=== PATIENT | male | born 1950 | race Caucasian/White ===

== ENCOUNTER 2017-11-05 14:19 | Observation (INO) ==
[2017-11-05] MEDS ORDERED: Ipratropium/Albuterol Neb 3 ML IH ONE ×2 (14:22→16:08)
[2017-11-05] MEDS ORDERED: Isovue-370 500 ML INFUS..BTL IV ONE (14:30)
--- NOTE | 2017-11-05 14:32 | Emergency Department Note ---
Disposition Clinical Impression: Acute respiratory failure, COPD exacerbation Disposition: Admitted As Inpatient Condition: Fair General Adult HPI - General Chief complaint: ED Shortness of Breath/Dyspnea Stated complaint: lydia Time Seen by Provider: 11/05/17 14:21 - Related Data Home Medications Medication Instructions Recorded Confirmed Amoxicillin [Amoxil] 500 mg PO TID 11/05/17 11/05/17 Atorvastatin Calcium [Lipitor] 20 mg PO QPM 11/05/17 11/05/17 C/Sourcherry/Celery/Grape Seed 1 cap PO DAILY 11/05/17 11/05/17 [Tart Mason Capsule] Calcium Carbonate [Calcium] 600 mg PO DAILY 11/05/17 11/05/17 Cetirizine HCl [Zyrtec] 10 mg PO DAILY 11/05/17 11/05/17 Cyanocobalamin (Vitamin B-12) 500 mcg PO DAILY 11/05/17 11/05/17 [Vitamin B-12] Fluticasone Propionate Nasal 1 spr NS DAILY 11/05/17 11/05/17 [Flonase] Lisinopril [Zestril] 20 mg PO DAILY 11/05/17 11/05/17 Multivit-Min/FA/Lycopen/Lutein [A 1 tab PO DAILY 11/05/17 11/05/17 Thru Z Select Men 50+ Tablet] [place]-3/Dha/Epa/Fish Oil [Fish Oil 1 cap PO DAILY 11/05/17 11/05/17 1,000 mg Softgel] Allergies Allergy/AdvReac Type Severity Reaction Status Date / Time No Known Allergies Allergy Verified 11/05/17 14:32 Past Medical History - Past Medical History Medical history: Reports: GERD, hyperlipidemia, hypertension Psychiatric history: Reports: no psych history - Social History Smoking Status: Former smoker Smokeless Tobacco Status: No Alcohol use: Reports: heavy, recent Drug use: Reports: none Course Vital Signs Pulse Rate 106 11/05/17 14:30 Respiratory Rate 28 11/05/17 14:30 Blood Pressure 151/103 11/05/17 14:30 O2 Sat by Pulse Oximetry 100 11/05/17 14:30 Temperature 98.5 F 11/05/17 14:33 Pulse Rate 101 11/05/17 16:30 Respiratory Rate 22 11/05/17 16:43 Blood Pressure 131/77 11/05/17 16:30 O2 Sat by Pulse Oximetry 97 11/05/17 16:43 Oxygen Delivery Oxygen Delivery Nasal Cannula Medical Decision Making - Lab Data Result diagrams: 11/05/17 14:47 11/05/17 14:47 Lab Results 11/05/17 11/05/17 11/05/17 Range/Units 14:47 14:47 14:47 WBC 8.9 (4.3-11.1) K/mcL RBC 4.70 (4.19-5.50) M/mcL Hgb 14.6 (12.9-16.9) g/dL Hct 42.1 (37.5-50.1) % MCV 89.6 (83.0-100.0) fL MCH 31.1 (28.0-33.3) pg MCHC 34.7 (31.6-35.5) g/dL RDW 12.8 (11.5-14.5) % Plt Count 321 (140-400) K/mcL MPV 10.0 (9.4-12.4) fL Immature Gran % 0.2 (0-4) % Seg Neutrophils % 70.6 % Lymphocytes % 14.0 % Monocytes % 7.2 % Eosinophils % 7.6 % Basophils % 0.4 % Neutrophils # 6.3 (1.6-8.9) K/mcL Lymphocytes # 1.3 (0.6-4.6) K/mcL Monocytes # 0.6 (0.0-1.3) K/mcL Eosinophils # 0.7 H (0.0-0.6) K/mcL Basophils # 0.0 (0.0-0.2) K/mcL Sodium 140 (136-145) mEq/L Potassium 4.0 (3.5-5.1) mEq/L Chloride 104 (98-107) mEq/L Carbon Dioxide 26 (23-29) mEq/L BUN 10 (8-23) mg/dL Creatinine 0.86 (0.70-1.30) mg/dL Est GFR ( Amer) > 60 (> 60) Est GFR (Non-Af Amer) > 60 (> 60) BUN/Creatinine Ratio 12 (6-26) Glucose 117 H (70-105) mg/dL Calculated Osmolality 290 (280-300) Lactic Acid (0.5-2.2) mmol/L Calcium 9.1 (8.6-10.3) mg/dL Troponin I < 0.03 (< 0.04) ng/mL B-Natriuretic Peptide 17 (Less than 100) pg/mL 11/05/17 Range/Units 14:47 WBC (4.3-11.1) K/mcL RBC (4.19-5.50) M/mcL Hgb (12.9-16.9) g/dL Hct (37.5-50.1) % MCV (83.0-100.0) fL MCH (28.0-33.3) pg MCHC (31.6-35.5) g/dL RDW (11.5-14.5) % Plt Count (140-400) K/mcL MPV (9.4-12.4) fL Immature Gran % (0-4) % Seg Neutrophils % % Lymphocytes % % Monocytes % % Eosinophils % % Basophils % % Neutrophils # (1.6-8.9) K/mcL Lymphocytes # (0.6-4.6) K/mcL Monocytes # (0.0-1.3) K/mcL Eosinophils # (0.0-0.6) K/mcL Basophils # (0.0-0.2) K/mcL Sodium (136-145) mEq/L Potassium (3.5-5.1) mEq/L Chloride (98-107) mEq/L Carbon Dioxide (23-29) mEq/L BUN (8-23) mg/dL Creatinine (0.70-1.30) mg/dL Est GFR ( Amer) (> 60) Est GFR (Non-Af Amer) (> 60) BUN/Creatinine Ratio (6-26) Glucose (70-105) mg/dL Calculated Osmolality (280-300) Lactic Acid 1.0 (0.5-2.2) mmol/L Calcium (8.6-10.3) mg/dL Troponin I (< 0.04) ng/mL B-Natriuretic Peptide (Less than 100) pg/mL Critical Care Time Critical Care Time: Yes Total Critical Care Time: 35 Attestation: Critical care performed: Time is exclusive of separately billable procedures. Time includes: direct patient care, patient reassessment, coordination of patient care, interpretation of data (laboratory data, radiology data, and respiratory data), review of patient's medical records, medical consultation and documentation of patient care. Procedures included in critical care time: Procedures excluded from critical care time: Attestation Statement - Attestation Attestation: I examined this patient and my medical decision-making was reviewed with the Resident Physician. I agree with the documented findings, disposition and treatment plan as described except to the extent set forth below. Patient presents to the ED with difficulty in breathing. Started last night. Coughing. Cannot lay flat. Was seen in urgent care this morning and prescribed Claritin and amoxicillin. On examination he is tachypneic with accessory muscle use. Wheezes and rhonchi in his lower lung jain bilaterally. Plan. Nebs chest x-ray cardiac workup. Workup does not show any acute process. Labs unremarkable. No obvious infiltrate on CT. We will treat as an acute bronchitis/COPD exacerbation. Steroids and nebs were given. Patient is improved at this time. No longer tachypneic. No longer requiring BiPAP. Admitted to medicine.
--- NOTE | 2017-11-05 14:57 | Emergency Department Note ---
Disposition Clinical Impression: COPD exacerbation Acute respiratory failure Qualifiers: Respiratory failure complication: unspecified whether with hypoxia or hypercapnia Qualified Code(s): J96.00 - Acute respiratory failure, unspecified whether with hypoxia or hypercapnia Disposition: Admitted As Inpatient Condition: Fair Referrals: Brando West MD [Primary Care Provider] - Forms: ED Satisfaction Letter SOB HPI - General Chief Complaint: ED Shortness of Breath/Dyspnea Stated Complaint: lydia Time Seen by Provider: 11/05/17 14:21 Source: patient, family, EMS Mode of arrival: EMS Limitations: no limitations Nursing Notes Reviewed: Yes Vital Signs Reviewed: Yes - History of Present Illness 67-year-old male history of hypertension, hyperlipidemia, prior smoking history who presents to the ER via EMS due to shortness of breath. Reports he has felt weak for a couple of weeks however last night he started developing a productive cough as well as shortness of breath. States that he woke up today and went to urgent care where they diagnosed him with allergies, started Claritin and amoxicillin and sent him home. States he got a breathing treatment there that did seem to help him briefly. He denies a prior history of COPD. No oxygen dependent history previously. Denies any fevers, chest pain , nausea, vomiting, diarrhea. No hemoptysis, recent travel, surgeries or cancer. No other complaints. Pt Subjective Complaint: shortness of breath, cough Onset (ago): day(s) Context: recent illness Severity: severe Consistency/Duration: constant Improves with: nothing Worsens with: lying flat Associated symptoms: Reports: cough, sputum production, orthopnea. Denies: chest pain, fever Treatment prior to arrival: none Cough present: Yes Cough Description: Involuntary Cough Frequency: Intermittent Sputum production: Yes - Related Data Home oxygen amount: none Allergies Allergy/AdvReac Type Severity Reaction Status Date / Time No Known Allergies Allergy Verified 11/05/17 14:32 All systems ED: reviewed and negative except as stated. Constitutional: Denies: fever Cardiovascular: Denies: chest pain Respiratory: Reports: cough, dyspnea, sputum production Gastrointestinal: Denies: abdominal pain, nausea, vomiting Past Medical History - Past Medical History Attestation: Yes The following information was validated with the patient. Source: patient Medical history: Reports: COPD, GERD, hyperlipidemia, hypertension Psychiatric history: Reports: no psych history - Social History Smoking Status: Former smoker Smokeless Tobacco Status: No Alcohol use: Reports: heavy, recent Drug use: Reports: none Physical Exam - General Limitations: no limitations General appearance: alert, in no apparent distress - Head Head exam: atraumatic, normocephalic - Eye Eye exam: Present: normal appearance - ENT ENT exam: normal exam - Neck Neck exam: Present: normal inspection - Chest Chest inspection: Present: normal inspection, symmetric chest wall rise - Respiratory Respiratory exam: Present: respiratory distress, other (There are coarse rhonchorous breath sounds bilaterally.) - Cardiovascular Cardiovascular exam: Present: normal rhythm, tachycardia, normal heart sounds - Abdominal Exam Abdominal exam: Present: soft, Non-Tender. Absent: tenderness, distention, rigidity - Extremities Exam Extremities exam: Present: normal inspection, full ROM - Expanded Upper Extremity Exam Shoulder exam: Present: normal inspection, full ROM Arm exam: Present: normal inspection, full ROM Elbow exam: Present: normal inspection, full ROM Forearm/Wrist exam: Present: normal inspection, full ROM Hand exam: Present: normal inspection, full ROM - Expanded Lower Extremity Exam Hip/Pelvis exam: Present: normal inspection, full ROM Upper leg exam: Present: normal inspection, full ROM Knee exam: Present: normal inspection, full ROM Lower leg exam: Present: normal inspection, full ROM, swelling (Nonpitting edema ) Ankle exam: Present: normal inspection, full ROM Foot/toe exam: Present: normal inspection, full ROM - Skin Skin exam: Present: warm, dry Course Course Narrative: Patient seen and examined. Vital signs reviewed. He appears to be in moderate to severe distress. He is not hypoxic. Suspect acute heart failure versus pneumonia. Plan to place him on BiPAP, EKG, chest x-ray, labs including sepsis workup. He will require admission for at least his workup breathing as well as underlying pathology. - Reevaluation(s) Reevaluation #1: Patient feeling better at this time. He is off BiPAP going for a CTA. Reevaluation #2: Discussed results of imaging and labs with the patient. He is agreeable with admission. Added on duo nebs and steroids as well as antibiotic coverage for likely COPD exacerbation. Vital Signs Pulse Rate 106 11/05/17 14:30 Respiratory Rate 28 11/05/17 14:30 Blood Pressure 151/103 11/05/17 14:30 O2 Sat by Pulse Oximetry 100 11/05/17 14:30 Temperature 98.5 F 11/05/17 14:33 Pulse Rate 94 11/05/17 16:00 Respiratory Rate 24 11/05/17 16:00 Blood Pressure 145/75 11/05/17 16:00 O2 Sat by Pulse Oximetry 99 11/05/17 16:00 Oxygen Delivery Oxygen Delivery Nasal Cannula Shortness of Breath/Dyspnea - MDM Narrative Medical decision making narrative: 67-year-old male presents with acute respiratory failure. Improved with BiPAP. Workup was grossly negative including CT of the chest and labs. Suspect underlying COPD exacerbation. Duo nebs and steroids given. Rocephin and Zithromax for antibiotic coverage. Admitted to the hospitalist service in stable condition. - Lab Data Lab results reviewed: Yes I reviewed the patient's lab results. Result diagrams: 11/05/17 14:47 11/05/17 14:47 Lab Results 11/05/17 11/05/17 11/05/17 Range/Units 14:47 14:47 14:47 WBC 8.9 (4.3-11.1) K/mcL RBC 4.70 (4.19-5.50) M/mcL Hgb 14.6 (12.9-16.9) g/dL Hct 42.1 (37.5-50.1) % MCV 89.6 (83.0-100.0) fL MCH 31.1 (28.0-33.3) pg MCHC 34.7 (31.6-35.5) g/dL RDW 12.8 (11.5-14.5) % Plt Count 321 (140-400) K/mcL MPV 10.0 (9.4-12.4) fL Immature Gran % 0.2 (0-4) % Seg Neutrophils % 70.6 % Lymphocytes % 14.0 % Monocytes % 7.2 % Eosinophils % 7.6 % Basophils % 0.4 % Neutrophils # 6.3 (1.6-8.9) K/mcL Lymphocytes # 1.3 (0.6-4.6) K/mcL Monocytes # 0.6 (0.0-1.3) K/mcL Eosinophils # 0.7 H (0.0-0.6) K/mcL Basophils # 0.0 (0.0-0.2) K/mcL Sodium 140 (136-145) mEq/L Potassium 4.0 (3.5-5.1) mEq/L Chloride 104 (98-107) mEq/L Carbon Dioxide 26 (23-29) mEq/L BUN 10 (8-23) mg/dL Creatinine 0.86 (0.70-1.30) mg/dL Est GFR ( Amer) > 60 (> 60) Est GFR (Non-Af Amer) > 60 (> 60) BUN/Creatinine Ratio 12 (6-26) Glucose 117 H (70-105) mg/dL Calculated Osmolality 290 (280-300) Lactic Acid (0.5-2.2) mmol/L Calcium 9.1 (8.6-10.3) mg/dL Troponin I < 0.03 (< 0.04) ng/mL B-Natriuretic Peptide 17 (Less than 100) pg/mL 11/05/17 Range/Units 14:47 WBC (4.3-11.1) K/mcL RBC (4.19-5.50) M/mcL Hgb (12.9-16.9) g/dL Hct (37.5-50.1) % MCV (83.0-100.0) fL MCH (28.0-33.3) pg MCHC (31.6-35.5) g/dL RDW (11.5-14.5) % Plt Count (140-400) K/mcL MPV (9.4-12.4) fL Immature Gran % (0-4) % Seg Neutrophils % % Lymphocytes % % Monocytes % % Eosinophils % % Basophils % % Neutrophils # (1.6-8.9) K/mcL Lymphocytes # (0.6-4.6) K/mcL Monocytes # (0.0-1.3) K/mcL Eosinophils # (0.0-0.6) K/mcL Basophils # (0.0-0.2) K/mcL Sodium (136-145) mEq/L Potassium (3.5-5.1) mEq/L Chloride (98-107) mEq/L Carbon Dioxide (23-29) mEq/L BUN (8-23) mg/dL Creatinine (0.70-1.30) mg/dL Est GFR ( Amer) (> 60) Est GFR (Non-Af Amer) (> 60) BUN/Creatinine Ratio (6-26) Glucose (70-105) mg/dL Calculated Osmolality (280-300) Lactic Acid 1.0 (0.5-2.2) mmol/L Calcium (8.6-10.3) mg/dL Troponin I (< 0.04) ng/mL B-Natriuretic Peptide (Less than 100) pg/mL - Radiology Data Radiology results reviewed: Yes I reviewed the patient's radiology results. Chest X-Ray 11/05/17 14:23 IMPRESSION: 1. Questionable patchy airspace opacities bilaterally, potentially pneumonia or edema. 2. Unchanged appearing right upper lobe collapse with suspected hyperinflation of the right middle and right lower lobes. Underlying mass is not excluded. Consider further evaluation with a contrast-enhanced chest CT. D/ / Jarod Soliz MD / Jarod Soliz MD Interpreting Provider: Jarod Soliz MD Chest CTA 11/05/17 14:30 IMPRESSION: No evidence of pulmonary embolism or acute pulmonary abnormality. D/ / Claus Teresa MD / Claus Teresa MD Interpreting Provider: Claus Teresa MD - EKG Data EKG attestation: Yes I reviewed and interpreted this EKG. EKG results narrative: EKG demonstrates sinus rhythm with a rate of 99 bpm. Normal axis. Normal intervals. Normal R-wave progression. No gross ST elevations or depressions. No acute ischemic findings. S.B.A.R. - Claudia.Carloz.Emile Situation: Demographics, MOA Background: Presenting Complaint, Relevant PMH, Meds, & Allergies Assessment: Vital Signs, Course and respsone to treatment, Exam Concerns, Patient/Family Expectation, Pertinant Lab Results Recommendation: Barrier(s) to disposition, Recommendation based on pending studies, treatments, or consults S.B.AValorieRValorie Report Given to: Dr. Laci Bryson Repor Time: 16:44
[2017-11-05 15:06] LABS: Basophils % 0.4 %; Eosinophils # 0.7 K/mcL (0.0-0.6); Eosinophils % 7.6 %; Hematocrit 42.1 % (37.5-50.1); Hemoglobin 14.6 g/dL (12.9-16.9); Immature Granulocytes % 0.2 % (0-4); Lymphocytes # 1.3 K/mcL (0.6-4.6); Mean Corpuscular HGB Conc 34.7 g/dL (31.6-35.5); Mean Corpuscular Hemoglobin 31.1 pg (28.0-33.3); Mean Corpuscular Volume 89.6 fL (83.0-100.0); Monocytes # 0.6 K/mcL (0.0-1.3); Monocytes % 7.2 %; Neutrophils # 6.3 K/mcL (1.6-8.9); Platelet Count 321 K/mcL (140-400); Red Cell Distribution Width 12.8 % (11.5-14.5); Segmented Neutrophils % 70.6 %
[2017-11-05 15:21] LABS: BUN/Creatinine Ratio 12 (6-26); Blood Urea Nitrogen 10 mg/dL (8-23); Calcium 9.1 mg/dL (8.6-10.3); Carbon Dioxide 26 mEq/L (23-29); Chloride 104 mEq/L (98-107); Glucose 117 mg/dL (70-105); Osmolality,Calculated 290 (280-300); Sodium 140 mEq/L (136-145); Troponin I < 0.03 ng/mL (< 0.04); eGFR For Non-African Americans > 60 (> 60)
[2017-11-05] MEDS ORDERED: Azithromycin 500 MG in D5% in Water 250 ML IVPB ONE (16:07)
[2017-11-05] MEDS ORDERED: cefTRIAXone 1,000 MG in Water for inj. (sterile) 20 ML 10 ML IVP ONE (16:07)
[2017-11-05] MEDS ORDERED: 0.9 % Sodium Chloride 1,000 ML IVC ONE (16:08)
[2017-11-05] MEDS ORDERED: methylPREDNISolone 125 MG/2 ML VIAL IVP ONE (16:09)
--- NOTE | 2017-11-05 17:36 | Internal Med History&Physical ---
Date of Encounter: 11/05/17 Time of Encounter: 17:31 Internal Medicine - H&P: HPI Chief complaint: Shortness of breath Admitted From: Home Plans for Post Hospital Care: Home History of present illness: Mr. Prajapati is a 67 year old male with past history of hypertension and hyperlipidemia who presents to the [facility] emergency department with chief complaint of shortness of breath. Patient noted developing shortness of breath yesterday which worsened today and the patient went to the urgent care. Patient was given amoxicillin and allergy medication and sent home. The patient's shortness of breath worsened at home and the patient then presented to the emergency department. The patient was very dyspneic and On presentation. The patient was put on steroids and antibiotics initially in the ER for concern for pneumonia and COPD exacerbation. The patient required BiPAP initially. The patient then underwent CT which ruled out pulmonary embolism. Chest x-ray revealed patchy opacities concerning for pneumonia. The patient's respiratory status improved on BiPAP and patient is currently off BiPAP for evaluation. Patient states he feels much better but is still short of breath when talking. Patient denies any recent sick contacts or recent travel. Patient denies any history of congestive heart failure denies orthopnea, dyspnea on exertion, paroxysmal nocturnal dyspnea. She denies any current chest pain however does have pain with inspiration. Also admits to a productive cough. Patient denies any abdominal pain, nausea, vomiting, diarrhea. Patient has been afebrile. Patient will be admitted to the hospital for COPD exacerbation with known previous diagnosis of COPD; of note patient is a former smoker. Past Med Surg Social Fam HX - Past Medical History Medical history: GERD, hyperlipidemia, hypertension Additional medical history: Gastritis. GOUT Psychiatric history: no psych history - Past Surgical History Additional surgical history: colonoscopy - Social History Smoking Status: Former smoker Smokeless Tobacco Status: No Alcohol use: heavy, recent Drug use: none Internal Medicine - H&P: Meds Amoxicillin [Amoxil] 500 mg PO TID 11/05/17 [History] Atorvastatin Calcium [Lipitor] 20 mg PO QPM 11/05/17 [History] C/Sourcherry/Celery/Grape Seed [Tart Mason Capsule] 1 cap PO DAILY 11/05/17 [ History] Calcium Carbonate [Calcium] 600 mg PO DAILY 11/05/17 [History] Cetirizine HCl [Zyrtec] 10 mg PO DAILY 11/05/17 [History] Cyanocobalamin (Vitamin B-12) [Vitamin B-12] 500 mcg PO DAILY 11/05/17 [History] Fluticasone Propionate Nasal [Flonase] 1 spr NS DAILY 11/05/17 [History] Lisinopril [Zestril] 20 mg PO DAILY 11/05/17 [History] Multivit-Min/FA/Lycopen/Lutein [A Thru Z Select Men 50+ Tablet] 1 tab PO DAILY 11/05/17 [History] [place]-3/Dha/Epa/Fish Oil [Fish Oil 1,000 mg Softgel] 1 cap PO DAILY 11/05/17 [ History] 3 Allergy/AdvReac Type Severity Reaction Status Date / Time No Known Allergies Allergy Verified 11/05/17 14:32 All Systems PM: A 10-system review of systems was performed and is negative for pertinent findings except as documented above in the HPI. Review of systems: 10 point review of systems is obtained and is otherwise negative other than described in history of present illness. - Constitutional Vitals: Temp Pulse Resp BP Pulse Ox 98.5 F 101 22 131/77 97 11/05/17 14:33 11/05/17 16:30 11/05/17 16:43 11/05/17 16:30 11/05/17 16:43 Exam: Constitutional: No acute distress, Alert Psych: AAO x 3 HEENT: NCAT, EOMI Neck: supple, no JVD Cardio: regular rate and rhythm, +s1s2, no murmurs/rubs/gallops, no JVD Resp: Diminished breath sounds throughout with inspiratory and expiratory wheezes; currently no retractions or intercostal muscle use; patient conversationally dyspneic Abd: soft, non tender/non distended, positive bowel sounds, no gaurding/reboud/ ridgitity Extremities: no clubbing/cyanosis/edema appreciated Neuro: no focal deficits appreciated Lymph: no cervical/supraclavicular adenopahty apprecitated Internal Med - H&P Results - Labs CBC & Chem 7: 11/05/17 14:47 11/05/17 14:47 - Assessment and plan (1) COPD exacerbation Current Visit: Yes Status: Acute Assessment and plan: Patient presents with acute exacerbation of COPD with no previous diagnosis -he is a former smoker -Continue IV steroids transitioned to by mouth as tolerated -Duo nebs -BiPAP when necessary -Levaquin for pneumonia and atypical coverage (2) Community acquired pneumonia Current Visit: Yes Status: Acute Assessment and plan: Patient with productive cough and chest x-ray revealing patchy airspace opacities bilaterally consistent with pneumonia -Continue antibiotics start Levaquin in a.m. -Patient received azithromycin and Rocephin in the emergency department -Blood cultures sent, will follow Qualifiers: Laterality: unspecified laterality Qualified Code(s): J18.9 - Pneumonia, unspecified organism (3) Hypertension Current Visit: Yes Status: Acute Assessment and plan: -Continue home medications -blood pressure currently stable Qualifiers: Hypertension type: essential hypertension Qualified Code(s): I10 - Essential (primary) hypertension (4) Hyperlipidemia Current Visit: Yes Status: Acute Assessment and plan: Continue home medications Qualifiers: Hyperlipidemia type: mixed hyperlipidemia Qualified Code(s): E78.2 - Mixed hyperlipidemia - Time Spent With Patient Total time spent is greater than 50% in coordination of care (as documented) at patient's floor/unit and/or counseling patient: 25 - 35 minutes
[2017-11-05] MEDS: *HR* Heparin 5,000 UNIT/ML VIAL SQ SCH (21:39)
[2017-11-05] MEDS: Ipratropium/Albuterol Neb 3 ML IH SCH (23:14)
[2017-11-06] MEDS ORDERED: MethylPREDNISolone 40 MG/ML VIAL IVP SCH
[2017-11-06] MEDS: Ipratropium/Albuterol Neb 3 ML IH SCH (04:20)
[2017-11-06] MEDS: *HR* Heparin 5,000 UNIT/ML VIAL SQ SCH (05:37)
[2017-11-06 05:39] LABS: Basophils % 0.1 %; Hematocrit 39.7 % (37.5-50.1); Hemoglobin 13.7 g/dL (12.9-16.9); Immature Granulocytes % 0.5 % (0-4); Lymphocytes % 9.3 %; Mean Corpuscular HGB Conc 34.5 g/dL (31.6-35.5); Mean Corpuscular Hemoglobin 31.1 pg (28.0-33.3); Mean Platelet Volume 10.1 fL (9.4-12.4); Monocytes # 0.1 K/mcL (0.0-1.3); Monocytes % 0.7 %; Neutrophils # 9.5 K/mcL (1.6-8.9); Platelet Count 307 K/mcL (140-400); Red Blood Count 4.41 M/mcL (4.19-5.50); Red Cell Distribution Width 12.9 % (11.5-14.5); Segmented Neutrophils % 89.4 %
[2017-11-06 06:26] VITALS: BP 124/68
--- NOTE | 2017-11-06 08:09 | Discharge Summary ---
- NOTES TO OUTPATIENT PROVIDER Notes to Outpatient Provider: Patient presented in respiratory distress requiring BiPAP and IV steroids due to significant wheezing. Imaging was concerning for pneumonia. Patient will be discharged on a short taper of steroids and antibiotics to complete a 5 day course. Patient should have pulmonary function test performed as an outpatient to evaluate for COPD. This was explained to the patient. Orders not resulted at time of discharge: Pending orders 11/05/17 17:45 Culture,Sputum with Gram Stain [RM] Routine Date of Encounter: 11/06/17 Time of Encounter: 08:06 - Discharge Diagnosis (1) COPD exacerbation Priority: Primary Status: Acute (2) Community acquired pneumonia Priority: Secondary Status: Acute Qualifiers: Laterality: unspecified laterality Qualified Code(s): J18.9 - Pneumonia, unspecified organism (3) Hypertension Priority: Secondary Status: Acute Qualifiers: Hypertension type: essential hypertension Qualified Code(s): I10 - Essential (primary) hypertension (4) Hyperlipidemia Priority: Secondary Status: Acute Qualifiers: Hyperlipidemia type: mixed hyperlipidemia Qualified Code(s): E78.2 - Mixed hyperlipidemia Hospital course: Mr. Prajapati is a 67 year old male who presented to the emergency department in significant respiratory distress. The patient was immediately put on BiPAP and given IV steroids and antibiotics. Imaging was concerning for pneumonia. The patient's steroids were quickly tapered to oral steroids which will be continued as an outpatient over a 3 day taper. The patient's antibiotics were transitioned to oral Levaquin which will be continued for additional 3 days to complete a 5 day course. Pulmonary embolism was ruled out via CTA. The patient was discharged on a small amount of guaifenesin with codeine to to painful cough. Patient should be evaluated for pulmonary function test as an outpatient to rule out and a rule out COPD. The patient was agreeable to discharge is stable for discharge on 11/06/2017. All questions answered. Discharge discussed with: patient, nurse - Time Spent with Patient Total time spent providing and/or coordinating discharge services: Greater than 30 minutes - Discharge Medications Prescriptions: GuaiFENesin/Codeine [ROBITUSSIN w/CODEINE] 5 ml PO Q6HR PRN 3 Days #30 ml PRN Reason: Cough levoFLOXacin [Levaquin] 750 mg PO DAILY 3 Days #3 tablet predniSONE [PredniSONE] 10 mg PO DAILY 3 Days #6 tablet Home Medications: Atorvastatin Calcium [Lipitor] 20 mg PO QPM 11/05/17 [History] C/Sourcherry/Celery/Grape Seed [Tart Mason Capsule] 1 cap PO DAILY 11/05/17 [ History] Calcium Carbonate [Calcium] 600 mg PO DAILY 11/05/17 [History] Cetirizine HCl [Zyrtec] 10 mg PO DAILY 11/05/17 [History] Cyanocobalamin (Vitamin B-12) [Vitamin B-12] 500 mcg PO DAILY 11/05/17 [History] Fluticasone Propionate Nasal [Flonase] 1 spr NS DAILY 11/05/17 [History] Lisinopril [Zestril] 20 mg PO DAILY 11/05/17 [History] Multivit-Min/FA/Lycopen/Lutein [A Thru Z [employer] Men 50+ Tablet] 1 tab PO DAILY 11/05/17 [History] [place]-3/Dha/Epa/Fish Oil [Fish Oil 1,000 mg Softgel] 1 cap PO DAILY 11/05/17 [ History] GuaiFENesin/Codeine [ROBITUSSIN w/CODEINE] 5 ml PO Q6HR PRN 3 Days #30 ml [Rx] levoFLOXacin [Levaquin] 750 mg PO DAILY 3 Days #3 tablet 11/06/17 [Rx] predniSONE [PredniSONE] 10 mg PO DAILY 3 Days #6 tablet 11/06/17 [Rx] Allergies/Adverse Reactions: 3 Allergy/AdvReac Type Severity Reaction Status Date / Time No Known Allergies Allergy Verified 11/05/17 14:32 Date of admission: 11/05/17 16:48 Primary care physician: Brando West MD Consults: 11/05/17 17:42 Consult to Nurse Navigator [CONS] Routine Comment: - Constitutional Vitals: Temp Pulse Resp BP Pulse Ox 98.9 F 115 20 124/68 93 11/06/17 06:25 11/06/17 06:25 11/06/17 06:25 11/06/17 06:25 11/06/17 06:25 Exam: Constitutional: No acute distress, Alert Psych: AAO x 3 Cardio: regular rate and rhythm, +s1s2 Resp: Faint expiratory wheezes greatly improved yesterday, much improved air exchange, no respiratory distress Abd: soft, non tender/non distended, Extremities: no clubbing/cyanosis/edema appreciated Neuro: no focal deficits appreciated - Patient Status Disposition: Home, Self-Care Condition: Good Functional capacity at discharge: independent ambulation Overall status at discharge: patient is back to baseline - Discharge Instructions Instructions: Chronic Obstructive Pulmonary Disease (DC) Follow Up With: Brando West MD [Primary Care Provider] - - Diet and Activity Activity: increase activity as tolerated Diet: advance to your usual diet
[2017-11-06] MEDS ORDERED: levoFLOXacin 750 MG TABLET PO SCH (09:00)
[2017-11-06] MEDS ORDERED: Fluticasone Propionate Nasal 50 MCG/SPRAY BOTTLE NS SCH (09:00)
[2017-11-06] MEDS ORDERED: Lisinopril 20 MG TABLET PO SCH (09:00)
[2017-11-06] MEDS ORDERED: NON-FORMULARY MEDICATION 1 EACH EACH (Omega-3/Dha/Epa/Fish Oil [Fish Oil 1,000 Mg Softgel] PO SCH (09:00)
[2017-11-06] MEDS ORDERED: Multivit/Ca/Min/Fe/FA 1 TAB TABLET PO SCH (09:00)
[2017-11-06] MEDS ORDERED: Cyanocobalamin (B-12) 1,000 MCG TABLET PO SCH (09:00)
[2017-11-06] MEDS ORDERED: Loratadine 10 MG TABLET PO SCH (09:00)
[2017-11-06] MEDS ORDERED: predniSONE 20 MG TABLET PO SCH (09:00)
--- NOTE | 2017-11-07 16:31 | Electrocardiograph Report ---
[address] [place], [place] [address] Test Date: 2017-11-05 Pat Name: Donald Prajapati Department: 102 Room: 2A16 Gender: M Nutrition Assistant: Gina : 1950 Requested By: Rodney Weiss Order Number: [id number] Reading MD: Laurel Childs Measurements Intervals Lane Rate: 99 P: 61 AK: 166 QRS: 25 QRSD: 100 T: 45 QT: 322 QTc: 378 Interpretive Statements SINUS RHYTHM WITH SINUS ARRHYTHMIA Electronically Signed On 11-07-2017 16:29:58 EDT by Laurel Childs
== END 2017-11-06 09:12 | disposition home or self-care (01) ==
LOC: EMEROO 14:19 → 2ANU 14:19
PROVIDERS: ADMIT Internal Medicine; ATTEND Internal Medicine

== ENCOUNTER 2020-09-21 20:00 | Observation (INO) ==
[2020-09-21] MEDS ORDERED: Aspirin 81 MG TAB.CHEW PO ONE (20:48)
[2020-09-21 21:02] LABS: Basophils % 0.3 %; Eosinophils # 0.3 K/mcL (0.0-0.6); Eosinophils % 3.7 %; Hemoglobin 13.1 g/dL (12.9-16.9); Immature Granulocytes % 0.4 % (0-4); Lymphocytes # 1.9 K/mcL (0.6-4.6); Lymphocytes % 20.8 %; Mean Corpuscular HGB Conc 32.8 g/dL (31.6-35.5); Mean Corpuscular Hemoglobin 30.3 pg (28.0-33.3); Mean Corpuscular Volume 92.4 fL (83.0-100.0); Monocytes # 0.8 K/mcL (0.0-1.3); Monocytes % 8.8 %; Platelet Count 357 K/mcL (140-400); Red Blood Count 4.33 M/mcL (4.19-5.50); White Blood Count 9.1 K/mcL (4.3-11.1)
[2020-09-21 21:29] LABS: BUN/Creatinine Ratio 13 (6-26); Blood Urea Nitrogen 13 mg/dL (8-23); Calcium 9.1 mg/dL (8.6-10.3); Carbon Dioxide 25 mEq/L (23-29); Chloride 102 mEq/L (98-107); Glucose 95 mg/dL (70-105); Osmolality,Calculated 282 (280-300); Potassium 4.2 mEq/L (3.5-5.1); Sodium 136 mEq/L (136-145); Troponin I < 0.03 ng/mL (< 0.04); eGFR For African Americans > 60 (> 60); eGFR For Non-African Americans > 60 (> 60)
[2020-09-21 21:34] LABS: Activated Partial Thrombo Time 30.7 Seconds (26.0-36.0)
[2020-09-21] MEDS ORDERED: Isovue-370 500 ML BOTTLE IVP ONE (21:39)
[2020-09-22] MEDS ORDERED: Ondansetron 4 MG/2 ML VIAL IVP PRN (01:41)
[2020-09-22] MEDS ORDERED: Melatonin 3 MG TABLET PO PRN (01:41)
[2020-09-22] MEDS ORDERED: Acetaminophen 325 MG TABLET PO PRN (01:41)
[2020-09-22] MEDS ORDERED: Naloxone 0.4 MG/ML INJ IVP PRN (01:41)
[2020-09-22 03:10] LABS: Basophils % 0.5 %; Eosinophils # 0.3 K/mcL (0.0-0.6); Eosinophils % 3.9 %; Hematocrit 40.5 % (37.5-50.1); Hemoglobin 13.1 g/dL (12.9-16.9); Immature Granulocytes % 0.4 % (0-4); Lymphocytes # 2.1 K/mcL (0.6-4.6); Lymphocytes % 24.8 %; Mean Corpuscular HGB Conc 32.3 g/dL (31.6-35.5); Mean Corpuscular Hemoglobin 29.9 pg (28.0-33.3); Mean Corpuscular Volume 92.5 fL (83.0-100.0); Mean Platelet Volume 10.2 fL (9.4-12.4); Monocytes # 0.8 K/mcL (0.0-1.3); Monocytes % 9.6 %; Platelet Count 347 K/mcL (140-400); Red Blood Count 4.38 M/mcL (4.19-5.50); Segmented Neutrophils % 60.8 %; White Blood Count 8.3 K/mcL (4.3-11.1)
[2020-09-22] MEDS ORDERED: Perflutren Lipid Microsphere 1.3 ML in 0.9 % Sodium Chloride 8.7 ML IVP PRN (03:10)
[2020-09-22 03:11] LABS: Alanine Aminotransferase 13 Units/L (7-52); Albumin 3.8 g/dL (3.5-5.7); Albumin/Globulin Ratio 1.2 (1.1-2.2); Alkaline Phosphatase 95 Units/L (34-104); Aspartate Amino Transferase 16 Units/L (13-39); BUN/Creatinine Ratio 13 (6-26); Bilirubin,Total 0.5 mg/dL (0.3-1.0); Blood Urea Nitrogen 11 mg/dL (8-23); Calcium 9.1 mg/dL (8.6-10.3); Carbon Dioxide 27 mEq/L (23-29); Chloride 103 mEq/L (98-107); Globulin 3.2 g/dL (2.4-3.5); Glucose 96 mg/dL (70-105); Magnesium 1.9 mg/dL (1.6-2.6); Osmolality,Calculated 285 (280-300); Phosphorous 3.7 mg/dL (2.7-4.5); Potassium 3.9 mEq/L (3.5-5.1); Sodium 138 mEq/L (136-145); Troponin I < 0.03 ng/mL (< 0.04); eGFR For African Americans > 60 (> 60); eGFR For Non-African Americans > 60 (> 60)
[2020-09-22 05:01] LABS: Chol/HDL Ratio 3.8 (0-4.9); Cholesterol 162 mg/dL (< 200); HDL Cholesterol 43 mg/dL (40-59); LDL Cholesterol,Calculated 99 mg/dL (< 100); Triglycerides 98 mg/dL (< 150)
[2020-09-22 05:27] LABS: INR 1.1; Prothrombin Time 12.8 Seconds (9.4-12.1)
[2020-09-22 06:24] LABS: Estimated Average Glucose 134 mg/dl; Hemoglobin A1C 6.3 %
[2020-09-22 07:04] VITALS: BP 158/76
== END 2020-09-22 14:10 | disposition home or self-care (01) ==
LOC: 3NENU 20:00 → EMEROOARM 20:00 → SUATTDRO 09-22 00:18 → 3NENU 09-22 00:50
PROVIDERS: ADMIT Internal Medicine; ATTEND Internal Medicine

== ENCOUNTER 2021-06-09 10:20 | Inpatient (IN) ==
[~2021-06-09 10:20] MED LIST: Famotidine 20 MG/2 ML VIAL IVP ONE
[2021-06-09] MEDS ORDERED: CeFAZolin Syr 2,000MG/20 ML 2,000 MG/20 ML SYRINGE IVPB ONE (10:46)
[2021-06-09] MEDS ORDERED: Ringers Solution, Lactated 1,000 ML IVC SCH (11:00)
[2021-06-09] MEDS ORDERED: Acetaminophen IV 1,000 MG/100 ML BAG IVPB ONE (11:24)
[2021-06-09] MEDS ORDERED: ceFAZolin 1,000 MG, Sodium Chloride IRRigation 1,000 ML IR ONE (11:40)
[2021-06-09] MEDS ORDERED: *HR* FentaNYL (PF) 100 MCG/2 ML VIAL ONE (11:41)
[2021-06-09] MEDS ORDERED: Sugammadex Sodium 200 MG/2 ML VIAL IV ONE ×2 (11:41→17:48)
[2021-06-09] MEDS ORDERED: *HR* Midazolam HCl 2 MG/2 ML VIAL ONE (11:41)
[2021-06-09] MEDS ORDERED: *HR* Rocuronium Bromide 50 MG/5 ML VIAL ONE ×2 (11:41→16:08)
[2021-06-09] MEDS ORDERED: *HR* Succinylcholine 200 MG/10 ML VIAL IVP ONE (11:41)
[2021-06-09] MEDS ORDERED: Ondansetron 4 MG/2 ML VIAL ONE (11:41)
[2021-06-09] MEDS ORDERED: *HR* Propofol 200 MG/20 ML VIAL IVP ONE (11:43)
[2021-06-09] MEDS ORDERED: *HR* Remifentanil 2 MG VIAL IVP ONE (11:55)
[2021-06-09] MEDS ORDERED: *HR* HYDROmorphone PF 0.5 MG/0.5 ML SYRINGE IVP PRN (12:06)
[2021-06-09] MEDS ORDERED: Naloxone 0.4 MG/ML INJ IVP PRN ×2 (12:06→21:00)
[2021-06-09] MEDS ORDERED: Albuterol 2.5 MG/3 ML NEBULIZER IH PRN (12:06)
[2021-06-09] MEDS ORDERED: Ondansetron 4 MG/2 ML VIAL IVP PRN ×2 (12:06→21:00)
[2021-06-09] MEDS ORDERED: Nitroglycerin 0.4 MG TAB.SUBL SL PRN (12:06)
[2021-06-09] MEDS ORDERED: *HR* FentaNYL (PF) 100 MCG/2 ML VIAL IVP PRN (12:06)
[2021-06-09] MEDS ORDERED: *HR* Phenylephrine 10 MG/ML VIAL ONE (12:09)
[2021-06-09] MEDS ORDERED: Heparin 1,000 UNITS/500 mL 500 ML ONE ×2 (13:41→13:51)
[2021-06-09] MEDS ORDERED: Protamine Sulfate 50 MG/5 ML VIAL IVP ONE (13:50)
[2021-06-09] MEDS ORDERED: *HR* Vasopressin 20 UNIT/ML VIAL ONE (14:52)
[2021-06-09] MEDS ORDERED: *HR* Heparin 5,000 UNIT/ML VIAL ONE (15:41)
[2021-06-09] MEDS ORDERED: *HR* Labetalol 20 MG/4 ML SYRINGE IVP ONE (17:41)
[2021-06-09] MEDS ORDERED: Albumin Human 5% 12.5 GM/250 ML IV.SOLN IVPB ONE (19:46)
[2021-06-09] MEDS ORDERED: Albumin Human 5% 12.5 GM/250 ML IV.SOLN ONE (19:54)
[2021-06-09] MEDS ORDERED: Acetaminophen 325 MG TABLET PO PRN (21:00)
[2021-06-09] MEDS ORDERED: *HR* Labetalol 20 MG/4 ML SYRINGE IVP PRN (21:00)
[2021-06-09] MEDS ORDERED: *HR* OxyCODONE Immed Rel 5 MG TABLET PO PRN (21:00)
[2021-06-09] MEDS ORDERED: Fluticasone Propionate Nasal 50 MCG/SPRAY BOTTLE NS PRN (21:00)
[2021-06-09] MEDS ORDERED: *HR* HYDROcodone/Acet 5/325 mg TABLET PO PRN (21:00)
[2021-06-09] MEDS ORDERED: Ringers Solution, Lactated 1,000 ML ONE (22:59)
[2021-06-09] MEDS ORDERED: 0.9 % Sodium Chloride 1,000 ML ONE (23:05)
[2021-06-09] MEDS: 0.9 % Sodium Chloride 1,000 ML IVC SCH (23:15)
[2021-06-10] MEDS: Budesonide/Formoterol 160/4.5 1 PUFF INH IH SCH ×2 (00:18→11:07)
[2021-06-10] MEDS: CeFAZolin 2 GM/120 ML BAG IVPB SCH ×3 (00:19→15:13)
[2021-06-10 04:18] LABS: Basophils % 0.2 %; Hematocrit 29.8 % (37.5-50.1); Hemoglobin 9.7 g/dL (12.9-16.9); Immature Granulocytes % 0.4 % (0-4); Lymphocytes # 0.8 K/mcL (0.6-4.6); Lymphocytes % 6.8 %; Mean Corpuscular HGB Conc 32.6 g/dL (31.6-35.5); Mean Corpuscular Hemoglobin 29.1 pg (28.0-33.3); Mean Corpuscular Volume 89.5 fL (83.0-100.0); Mean Platelet Volume 9.8 fL (9.4-12.4); Monocytes # 0.6 K/mcL (0.0-1.3); Monocytes % 5.1 %; Neutrophils # 9.6 K/mcL (1.6-8.9); Platelet Count 279 K/mcL (140-400); Red Blood Count 3.33 M/mcL (4.19-5.50); Red Cell Distribution Width 13.6 % (11.5-14.5); Segmented Neutrophils % 87.5 %
[2021-06-10 04:37] LABS: BUN/Creatinine Ratio 13 (6-26); Blood Urea Nitrogen 13 mg/dL (8-23); Calcium 7.8 mg/dL (8.6-10.3); Carbon Dioxide 25 mEq/L (23-29); Chloride 104 mEq/L (98-107); Glucose 125 mg/dL (70-105); Osmolality,Calculated 282 (280-300); Potassium 4.5 mEq/L (3.5-5.1); Sodium 135 mEq/L (136-145); eGFR For African Americans > 60 (> 60); eGFR For Non-African Americans > 60 (> 60)
[2021-06-10] MEDS ORDERED: Loratadine 10 MG TABLET PO SCH (09:00)
[2021-06-10] MEDS ORDERED: NON-FORMULARY MEDICATION 1 EACH EACH (Omega-3/Dha/Epa/Fish Oil [Fish Oil 1,000 Mg Softgel] PO SCH (09:00)
[2021-06-10] MEDS ORDERED: lisinopriL 20 MG TABLET PO SCH (09:00)
[2021-06-10] MEDS ORDERED: Cholecalciferol (D-3) 1,000 UNIT (25MCG) TABLET PO SCH (09:00)
[2021-06-10] MEDS ORDERED: Aspirin Enteric Coated 81 MG Tablet PO SCH (09:00)
[2021-06-10] MEDS ORDERED: [UNRECOGNIZED DRUG - OTHER] PO SCH (09:00)
[2021-06-10] MEDS ORDERED: Multivit/Ca/Min/Fe/FA 1 TAB TABLET PO SCH (09:00)
[2021-06-10] MEDS: 0.9 % Sodium Chloride 1,000 ML IVC SCH (11:40)
[2021-06-10 15:27] VITALS: BP 112/53; PULSE 70; TEMP 98.1; O2SAT 94
== END 2021-06-10 16:12 | disposition home or self-care (01) | DRG 39 ==
LOC: SAMDAY 10:20 → 2NNU 20:58
PROVIDERS: ADMIT Surgery Vascular Surgery; ATTEND Surgery Vascular Surgery